=== PATIENT | female | born 1975 | race African-American/Black ===

== ENCOUNTER 2020-04-11 22:27 | Emergency (ER) | payer SELFPAY ==
[~2020-04-11] VITALS: Ht 172.7 cm; Wt 84.0 kg
[2020-04-12] MEDS ORDERED: AMLODIPINE 5MG TABLET PO ONE
[2020-04-12] MEDS ORDERED: NITROGLYCERIN 0.4MG TABLET SL SL ONE
[2020-04-12 00:49] LABS: HEMATOCRIT. 43.1 % (36.0-48.0); HEMOGLOBIN. 14.7 g/dL (12.0-16.0); LYMPHOCYTES % 56.4 % (20.0-50.0); MEAN CORPUSCULAR HEMOGLOBIN 31.3 pg (28.0-32.0); MEAN PLATELET VOLUME 8.5 fl (7.4-10.4); MONOCYTES % 7.8 % (2.0-8.0); NEUTROPHILS % 32.8 % (40.0-76.0); PLATELET 219 x1000/uL (130-400); RED BLOOD CELL COUNT 4.68 mill/uL (4.2-5.4)
[2020-04-12 00:55] LABS: CHLORIDE 105 mEq/L (98-107)
[2020-04-12 03:08] VITALS: BP 145/85
== END 2020-04-12 03:52 | disposition home or self-care (01) ==
LOC: ER 22:27
DX: I16.0 Hypertensive urgency (principal); R51.9 Headache, unspecified; I49.9 Cardiac arrhythmia, unspecified; Z98.890 Other specified postprocedural states
CPT/HCPCS: 36415; 71045; 80053; 83605; 85025; 93005; 99285